=== PATIENT | female | born 1950 | race Caucasian/White ===

== ENCOUNTER → 2017-03-24 | Outpatient (REF) | payer OTHER | LOC: M LAB REF 16:22 | PROVIDERS: ATTEND Nurse Practitioner Adult Health | DX: R07.89 Other chest pain (principal) ==

== ENCOUNTER → 2018-02-16 | Outpatient (CLI) | payer MEDICARE, OTHER | LOC: M RAD 08:18 | DX: I15.0 Renovascular hypertension (principal); N18.4 Chronic kidney disease, stage 4 (severe) | CPT/HCPCS: 76775 ==

== ENCOUNTER → 2018-02-24 | Outpatient (CLI) | payer MEDICARE | LOC: M WHC 14:03 | DX: R92.8 Other abnormal and inconclusive findings on diagnostic imaging of breast (principal) | CPT/HCPCS: 77067 ==

== ENCOUNTER → 2018-03-03 | Outpatient (CLI) | payer MEDICARE | LOC: M RAD 13:36 | DX: N63.11 Unspecified lump in the right breast, upper outer quadrant (principal); N60.31 Fibrosclerosis of right breast | CPT/HCPCS: 77065 ==

== ENCOUNTER → 2018-03-12 | Outpatient (CLI) | payer MEDICARE ==
[~2018-03-12] MED LIST: LIDOCAINE 1% MDV 20ML VIAL As Ordered
== END ==
LOC: M RADPRO 11:54
DX: N63.21 Unspecified lump in the left breast, upper outer quadrant (principal); Z53.8 Procedure and treatment not carried out for other reasons

== ENCOUNTER → 2018-03-18 | Outpatient (CLI) | payer MEDICARE | LOC: M RADPRO 12:12 | DX: C50.911 Malignant neoplasm of unspecified site of right female breast (principal); Z79.82 Long term (current) use of aspirin; Z79.4 Long term (current) use of insulin; Z79.899 Other long term (current) drug therapy; Z88.5 Allergy status to narcotic agent | CPT/HCPCS: 19083 ==

== ENCOUNTER → 2018-05-21 | Outpatient (CLI) | payer MEDICARE ==
[~2018-05-21] MED LIST changes: +ANAS1TAB2 PO; +ASPI81CH32 PO; +BIOT1TAB PO; +FENO145T13 PO; +FLON1SPR NARES; +HUMA75VL SC; +HYDR12.55 PO; -LIDOCAINE 1% MDV 20ML VIAL As Ordered; +LISI-538 PO; +NAPR250T4 PO; +NITR4TASL SL; +PLAV1TAB2 PO; +PROBCAP14 PO; +SITA50TAB PO; +TOPR100T13 PO; +TRAM50TA2 PO; +ZOCO40TA PO
--- NOTE | 2018-05-24 09:18 | RADONC ---
RADIATION ONCOLOGY CONSULTATION NOTE DATE: 05/21/2018 CHART NUMBER: [id number] DIAGNOSIS: Right breast cancer. STAGE: I A, T1c, N0, M0, grade 1, ER positive, OR positive, HER2/satish negative. ECOG PERFORMANCE STATUS: Zero. CONSULTATION NOTE: Ms. 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 HISTORY OF PRESENT ILLNESS: The patient was in her usual state of health until routine mammogram was undertaken and revealed a suspicious area in the upper outer quadrant of the right breast. On 04/21/2018, the patient underwent lumpectomy and sentinel lymph node biopsy. Pathology revealed a 1.3 cm well-differentiated infiltrating ductal carcinoma. All margins of resection were negative with the closest margin being 1.5 mm. A total of three sentinel lymph nodes were sampled and all were negative for malignancy. The tumor was estrogen receptor and progesterone receptor positive and HER2/satish negative. The patient was seen by medical oncology and deemed not to be a candidate for systemic chemotherapy. She is now presenting to us for discussion of external beam radiation therapy. PAST MEDICAL HISTORY: The patient's past medical history is positive for an SC in 2001. She has hypertension, diabetes and arthritis. She has had two hernias in the past and has had a cardiac stent placed. ALLERGIES: The patient has NO KNOWN DRUG ALLERGIES. She reports nausea with pain medications. SOCIAL HISTORY: The patient does not smoke cigarettes nor abuse alcohol. FAMILY HISTORY: The patient's family history is negative for breast cancer or other malignancies. REVIEW OF SYSTEMS: The patient's review of systems is noncontributory. Denies nausea, vomiting, fevers, chills, night sweats, diplopia, headaches, anxiety or depression, anorexia, weight loss, visual disturbances, chest pain, urinary or bowel difficulties, bone pain, or neurological problems. PHYSICAL EXAMINATION: The patient is a well-developed, well-nourished, 67-year-old white female, in no acute distress. HEENT exam is normocephalic, atraumatic. Extraocular movements are intact. There is no palpable cervical, supraclavicular, infraclavicular, axillary, or inguinal lymphadenopathy present. Lungs are clear to auscultation and percussion. Heart has a regular rate and rhythm. Abdomen is benign with no hepatosplenomegaly, masses, or tenderness. Breast examination reveals no masses or discharge bilaterally. Skeletal examination reveals no tenderness to pressure or percussion of the bony skeleton. Extremities reveal no clubbing, cyanosis, or edema. Neurologic exam is grossly intact, as is the remainder of the physical examination. ASSESSMENT: Clearly the patient is a candidate for external beam radiation therapy and I have so informed her. I have discussed with the patient in detail the potential benefits as well as possible acute and chronic sequelae of external beam radiation therapy. We discussed logistics of treatment planning, simulation and subsequent fractionated daily radiation treatments. I have scheduled the patient for the next available simulation slot and radiation treatments will begin subsequently. Thank you for allowing us to participate in the care of this very pleasant woman. If I could be of any further assistance or provide you with any information, please feel free to contact me anytime. As always, warm regards. cc: Mayelin Rodriguez MD
== END ==
LOC: M ONCR 08:58
PROVIDERS: ATTEND Radiology Radiation Oncology
DX: C50.919 Malignant neoplasm of unspecified site of unspecified female breast (principal)

== ENCOUNTER → 2018-05-25 | Outpatient (CLI) | payer MEDICARE ==
--- NOTE | 2018-05-28 09:36 | DEXA ---
AP SPINE L1 - L4 1.406 1.7 3.4 LT FEMUR TOTAL 1.063 0.4 1.9 LT NECK 0.955 -0.6 1.1 RT FEMUR TOTAL 1.005 0.0 1.4 RT NECK 0.908 -0.9 0.7 TOTAL BODY TOTAL OTHER COMMENTS: Normal bone densitometry of the spine and hips. FOLLOW-UP: Recommendation for the next bone density exam: 5 years. SAPPHIRE
== END ==
LOC: M WHC 12:52
PROVIDERS: ATTEND Internal Medicine Hematology & Oncology
DX: M81.0 Age-related osteoporosis without current pathological fracture (principal)

== ENCOUNTER 2018-06-10 10:17 | Outpatient (RCR) | payer MEDICARE ==
[2018-06-01 11:23] LABS: HEMATOCRIT 36.5 % (36.0-47.0); LYMPH % 32.1 % (24.0-44.0); MEAN CORPUSCULAR HEMOGLOBIN 30.9 pg (27.0-33.0); MEAN CORPUSCULAR HGB CONC 32.9 g/dl (32.0-36.5); NEUTROPHILS # 3.1 10^3/uL (1.8-7.7); NEUTROPHILS % 58.8 % (36.0-66.0); RED BLOOD COUNT 3.88 10^6/uL (4.00-5.40); WHITE BLOOD COUNT 5.3 10^3/uL (4.0-10.0)
--- NOTE | 2018-06-02 10:56 | RADONC ---
RADIATION ONCOLOGY SIMULATION NOTE DATE: 06/01/2018 CHART NUMBER: [id number] Ms. Roldan was taken to the CT scan for CT simulation of her right breast field. CT was accomplished without difficulty or discomfort. Radiation treatment planning is underway and radiation treatments will begin subsequently. An immobilization device was created and will be used throughout the course of treatment. It was created without difficulty or discomfort. I was physically present throughout the course of CT simulation.
--- NOTE | 2018-06-08 13:37 | RADONC ---
RADIATION ONCOLOGY PROGRESS NOTE DATE: 06/08/2018 CHART NUMBER: [id number] Ms. Roldan underwent her first fraction of radiation today to her right breast for a dose of 266.67 cGy. It was tolerated without difficulty or discomfort. The patient's review of systems is noncontributory. She denies nausea, vomiting, fevers, chills, night sweats, diplopia, headaches, anxiety or depression, anorexia, weight loss, visual disturbances, chest pain, urinary or bowel difficulties, bone pain, or neurological problems. PHYSICAL EXAMINATION: Clearly the patient's skin shows no evidence of radiation change present since this was her first fraction of treatment. The remainder of physical exam remains unchanged as well. Ms. Roldan tolerated her treatment quite well and radiation will continue as scheduled.
== END 2018-06-11 ==
LOC: M ONCR 10:17
PROVIDERS: ATTEND Radiology Radiation Oncology
DX: C50.411 Malignant neoplasm of upper-outer quadrant of right female breast (principal)

== ENCOUNTER 2018-07-01 10:20 | Outpatient (RCR) | payer MEDICARE ==
--- NOTE | 2018-06-16 09:56 | RADONC ---
RADIATION ONCOLOGY PROGRESS NOTE DATE: 06/15/2018 CHART NUMBER: [id number] Ms. Roldan is presently at a dose of 1067 cGy to her right breast and is tolerating treatments quite well at this point with no complaints related to her radiation therapy. She is having no breast or bone pain. REVIEW OF SYSTEMS: The patient's review of systems is noncontributory. She denies nausea, vomiting, fevers, chills, night sweats, diplopia, headaches, anxiety or depression, anorexia, weight loss, visual disturbances, chest pain, urinary or bowel difficulties, bone pain, or neurological problems. PHYSICAL EXAMINATION: The patient's skin is in good condition with no evidence of moist or dry desquamation. The remainder of her physical exam remains unchanged. Ms. Roldan is tolerating treatments quite well and radiation will continue as scheduled.
--- NOTE | 2018-06-24 10:29 | RADONC ---
RADIATION ONCOLOGY PROGRESS NOTE DATE: 06/22/2018 CHART NUMBER: [id number] Paulette Roldan, with a diagnosis of right breast cancer stage IA, [id number], is currently receiving local regional radiotherapy via a breast conservation radiotherapy technique and her current dose is 266.7 cGy of an anticipated 4000 cGy. She has no specific complaints related to her disease or to her treatment, specifically denying any nausea, vomiting, coughing, sputum production or hemoptysis. She also denies any skin irritation. Her energy level is such that she is able to maintain most day-to-day activities, although she experiences a minimal amount of fatigue. The remainder of the review of systems is noncontributory. PHYSICAL EXAMINATION: Unchanged with no new physical findings, specifically the skin within the irradiated volume shows no significant erythema and certainly no focal desquamation. IMPRESSION: Tolerating therapy well. PLAN: Treatments to continue. MTDD
--- NOTE | 2018-06-30 20:23 | RADONC ---
RADIATION ONCOLOGY PROGRESS NOTE DATE OF SERVICE: 06/29/2018 CHART NUMBER: [id number]. PROGRESS NOTE: Mrs. Roldan with a right breast carcinoma is currently undergoing radiotherapy, and she seems to be tolerating her therapy quite well. She denies any nausea, vomiting, coughing, sputum production, or hemoptysis. She said this morning she had just a minimal amount of skin irritation in the inframammary fold, but it is not clinically apparent. The remainder of the review of systems is essentially negative, for she denies any issues with lung, heart, energy level, nausea, vomiting, anxiety, focal neurologic issues, or bone pain. EXAMINATION FINDINGS: The skin within the irradiated volume shows perhaps only a minimal amount of erythema in the inframammary fold with no focal desquamation, and the remainder of the physical examination is essentially negative. IMPRESSION: Tolerating therapy well. PLAN: Treatments to continue. MTDD
--- NOTE | 2018-07-02 11:47 | RADONC ---
RADIATION ONCOLOGY TREATMENT SUMMARY DATE: 07/01/2018 CHART NUMBER: [id number] DIAGNOSIS: Right breast cancer. STAGE: IA, A4nS6C1, ER/[place] positive, HER2/satish negative, grade 1. ECOG PERFORMANCE STATUS: 0 SUMMARY: PLAN OF RADIOTHERAPY: Adjuvant external beam radiotherapy. Date radiotherapy started 06/08, date radiotherapy completed 07/01. DOSE: The patient received a total of 4000.5 cGy administered in 15 fractions over 23 elapsed days. Prior to treatment delivery localization was accomplished upon our CT simulator and treatment portals defined by the use of multiple collimators. 3D conformal radiotherapy was employed as the technique of choice with tangential beams. A 6 and 15 mV photon beam were selected for treatment delivery. STATUS OF TUMOR: There was neither evidence of local regional recurrence nor clinical evidence of distant metastatic disease during the course of radiotherapy tolerance. In general, the patient tolerated her radiotherapy reasonably well, denying any significant nausea, vomiting, coughing, sputum production or hemoptysis. Her skin actually held up fairly nicely as she had may be minimal amount of erythema or a small amount of tanning, but actually no desquamation and no significant erythema. DISPOSITION: Return to clinic in 1 month for post radiotherapy followup visit and she was instructed to return to her referring physicians as per their directions and instructions. cc: MD Jany Carrion MD Jason White, MD
== END 2018-07-09 ==
LOC: M ONCR 10:20
PROVIDERS: ATTEND Radiology Radiation Oncology
DX: C50.411 Malignant neoplasm of upper-outer quadrant of right female breast (principal)

== ENCOUNTER → 2018-07-29 | Outpatient (CLI) | payer MEDICARE ==
--- NOTE | 2018-07-30 10:11 | RADONC ---
RADIATION ONCOLOGY FOLLOW-UP NOTE DATE: 07/29/2018 CHART NUMBER: [id number] DIAGNOSIS: Right breast cancer. STAGE: IA, [id number]. ECOG PERFORMANCE STATUS: 0 FOLLOW-UP NOTE: Ms. Roldan is a very pleasant 67-year-old white female with the diagnosis of a stage IA, [id number], well-differentiated infiltrating ductal carcinoma of the right breast who is presenting to us today for routine followup visit 1 month post completion of external beam radiation therapy. The patient presents today reporting that she is doing quite well with no complaints at this time related to her radiation therapy or disease. She has no breast or bone pain. REVIEW OF SYSTEMS: The patient's review of systems is noncontributory. She denies nausea, vomiting, fevers, chills, night sweats, diplopia, headaches, anxiety or depression, anorexia, weight loss, visual disturbances, chest pain, urinary or bowel difficulties, bone pain, or neurological problems. PHYSICAL EXAMINATION: The patient is a well-developed, well-nourished white female in no acute distress. HEENT exam is normocephalic, atraumatic. Extraocular movements are intact. There is no palpable cervical, supraclavicular, infraclavicular, axillary, or inguinal lymphadenopathy present. Lungs are clear to auscultation and percussion. Heart has a regular rate and rhythm. Abdomen is benign with no hepatosplenomegaly, masses, or tenderness. Breast examination reveals no masses or discharge bilaterally. Skeletal examination reveals no tenderness to pressure or percussion of the bony skeleton. Extremities reveal no clubbing, cyanosis, or edema. Neurologic exam is grossly intact, as is the remainder of the physical examination. ASSESSMENT: The patient is clinically YAKELIN at this time. She is being seen by her medical oncologist, Dr. Jany Garber and her surgeon Dr. Mayelin Rodriguez on a routine basis and is therefore being discharged from our followup except on a p.r.n. basis. cc: MD Jany Carrion MD Jason White, MD
== END ==
LOC: M ONCR 15:02
PROVIDERS: ATTEND Radiology Radiation Oncology
DX: C50.411 Malignant neoplasm of upper-outer quadrant of right female breast (principal)

== ENCOUNTER → 2019-01-25 | Outpatient (REF) | payer MEDICARE ==
[~2019-01-25] MED LIST changes: -ASPI81CH32 PO; +ASPI81CH33 PO; +TOPR100T PO; -TOPR100T13 PO
[2019-01-27 08:18] LABS: LDL DIRECT 155 mg/dL (0-99)
== END ==
LOC: M LAB REF 19:45
PROVIDERS: ATTEND Nurse Practitioner Adult Health
DX: E78.00 Pure hypercholesterolemia, unspecified (principal)

== ENCOUNTER → 2019-07-19 | Outpatient (REF) | payer MEDICARE ==
[~2019-07-19] MED LIST changes: -FENO145T13 PO; +FENO145T7 PO
[2019-07-21 08:06] LABS: LDL DIRECT 146 mg/dL (0-99)
== END ==
LOC: M LAB REF 16:24
PROVIDERS: ATTEND Nurse Practitioner Adult Health
DX: E78.00 Pure hypercholesterolemia, unspecified (principal)

== ENCOUNTER → 2020-02-09 | Outpatient (CLI) | payer MEDICARE ==
[~2020-02-09] MED LIST changes: +ROSU40TA4 PO
== END ==
LOC: M LABSMTC 11:39
PROVIDERS: ATTEND Anesthesiology
DX: Z01.812 Encounter for preprocedural laboratory examination (principal); Z20.828 Contact with and (suspected) exposure to other viral communicable diseases
CPT/HCPCS: C9803; U0003

== ENCOUNTER 2020-02-14 13:00 | Day surgery (SDC) | payer MEDICARE ==
[~2020-02-14] VITALS: Ht 157.5 cm; Wt 65.3 kg
[~2020-02-14 13:00] MED LIST changes: +NS 1,000 ML IV ONE
[2020-02-14] MEDS ORDERED: propofoL 200 MG/20 ML VIAL As Ordered ONE ×2 (15:18→15:28)
--- NOTE | 2020-02-14 15:50 | ROOR ---
Patient Name: Paulette Roldan Procedure Date: 02/14/2020 3:14 PM Date of : 1950 Age: 69 Room: [facility] Gender: Female Note Status: Finalized Procedure: Total Colonoscopy to Cecum + Cold Snare Polypectomy Indications: Screening for colorectal malignant neoplasm Providers: Ced Harvey MD Referring MD: Suzy Navarrete NP Requesting Provider: Medicines: Monitored Anesthesia Care Complications: No immediate complications. Procedure: Pre-Anesthesia Assessment: - The heart rate, respiratory rate, oxygen saturations, blood pressure, adequacy of pulmonary ventilation, and response to care were monitored throughout the procedure. The Colonoscope was introduced through the anus and advanced to the cecum, identified by appendiceal orifice and ileocecal valve. The Colonoscope was introduced through the and advanced to. The colonoscopy was performed without difficulty. The patient tolerated the procedure well. The quality of the bowel preparation was good. Findings: The perianal and digital rectal examinations were normal. Non-bleeding internal hemorrhoids were found during retroflexion. The hemorrhoids were small and Grade I (internal hemorrhoids that do not prolapse). Multiple small and large-mouthed diverticula were found in the recto-sigmoid colon, sigmoid colon and descending colon. A small polyp was found at 50 cm proximal to the anus. The polyp was sessile. The polyp was removed with a cold snare. Resection and retrieval were complete. The exam was otherwise without abnormality on direct and retroflexion views. Impression: - Non-bleeding internal hemorrhoids. - Diverticulosis in the recto-sigmoid colon, in the sigmoid colon and in the descending colon. - One small polyp at 50 cm proximal to the anus, removed with a cold snare. Resected and retrieved. - The examination was otherwise normal on direct and retroflexion views. - The exam was otherwise normal to the cecum. Recommendation: - Patient has a contact number available for emergencies. The signs and symptoms of potential delayed complications were discussed with the patient. Return to normal activities tomorrow. Written discharge instructions were provided to the patient. - High fiber diet. - Discharge patient to home. - Continue present medications. - Await pathology results. - Telephone GI clinic for pathology results in 1 week. - Repeat colonoscopy is not recommended due to current age (66 years or older) for screening purposes. - Return to referring physician. - The findings and recommendations were discussed with the patient. Ced Harvey MD Ced Harvey MD 02/14/2020 3:50:25 PM Electronically signed by Ced Harvey MD Number of Addenda: 0 Note Initiated On: 02/14/2020 3:14 PM Estimated Blood Loss: Estimated blood loss: none.
[2020-02-14 16:10] VITALS: BP 144/84
== END 2020-02-14 16:25 | disposition home or self-care (01) ==
LOC: M OPP 13:00
PROVIDERS: ATTEND Internal Medicine Gastroenterology
DX: Z12.11 Encounter for screening for malignant neoplasm of colon (principal); D12.6 Benign neoplasm of colon, unspecified; K64.0 First degree hemorrhoids; K57.30 Diverticulosis of large intestine without perforation or abscess without bleeding; E10.9 Type 1 diabetes mellitus without complications; R12 Heartburn; Z85.3 Personal history of malignant neoplasm of breast; Z85.828 Personal history of other malignant neoplasm of skin; Z92.3 Personal history of irradiation; Z95.5 Presence of coronary angioplasty implant and graft; Z86.73 Personal history of transient ischemic attack (TIA), and cerebral infarction without residual deficits; Z88.5 Allergy status to narcotic agent; Z79.82 Long term (current) use of aspirin; Z79.4 Long term (current) use of insulin; Z79.899 Other long term (current) drug therapy

== ENCOUNTER → 2020-05-18 | Outpatient (CLI) | payer MEDICARE ==
[~2020-05-18] MED LIST changes: -NS 1,000 ML IV ONE
--- NOTE | 2020-05-18 11:05 | DEXAMM ---
INDICATION: BREAST CA/ON ARIMATASE INHIBITORS. COMPARISON: Comparison study May 25, 2018.. TECHNIQUE: Bone density was measured using dual-energy x-ray absorptionmetry (DEXA). FINDINGS: AP SPINE L1-L4 BMD 1.405 g/cm2 Young Adult T-Score 1.7 Age Matched Z-Score 3.4. LT FEMUR, TOTAL BMD 0.993 g/cm2 Young Adult T-Score -0.1 Age Matched Z-Score 1.4. LT NECK BMD 0.928 g/cm2 Young Adult T-Score -0.8 Age Matched Z-Score 1.0. RT FEMUR, TOTAL BMD 1.016 g/cm2 Young Adult T-Score 0.1 Age Matched Z-Score 1.6. RT NECK BMD 0.924 g/cm2 Young Adult T-Score -0.8 Age Matched Z-Score 0.9. IMPRESSION: There is normal bone density of the spine. There is normal bone density of the left hip. There is normal bone density of the right hip. The density of the spine has decreased 0.1% since the initial exam on May 25, 2018. The density of the left hip has decreased 6.6% since initial exam on May 25, 2018. The density of the right hip has increased 1.1% since the initial exam on May 25, 2018. FOLLOW-UP: Recommendation for the next bone density exam: 5 years. <Electronically signed by Garcia Flores > 05/18/20 1100
== END ==
LOC: M WHC 09:40
PROVIDERS: ATTEND Internal Medicine Hematology & Oncology
DX: C50.919 Malignant neoplasm of unspecified site of unspecified female breast (principal); Z79.811 Long term (current) use of aromatase inhibitors; M85.89 Other specified disorders of bone density and structure, multiple sites

== ENCOUNTER → 2021-01-30 | Outpatient (REF) | payer MEDICARE ==
[~2021-01-30] MED LIST changes: -LISI-538 PO; +LISI20TA33 PO; +NAPR-849 PO; -NAPR250T4 PO
== END ==
LOC: M LAB REF 17:11
PROVIDERS: ATTEND Nurse Practitioner Family
DX: E83.42 Hypomagnesemia (principal)

== ENCOUNTER → 2021-06-04 | Outpatient (REF) | payer MEDICARE ==
[2021-06-04 17:46] LABS: MALB URINE SIEMENS 25.3 MG/L; MAU/CREAT RATIO 18.7 MCG/MG (0.0-30.0)
== END ==
LOC: M LAB REF 16:10
PROVIDERS: ATTEND Nurse Practitioner Adult Health
DX: E11.65 Type 2 diabetes mellitus with hyperglycemia (principal)

== ENCOUNTER 2021-08-03 10:14 | Emergency (ER) | payer MEDICARE ==
[~2021-08-03] VITALS: Ht 154.9 cm; Wt 64.5 kg
[2021-08-03] MEDS ORDERED: BOOSTRIX/ADACEL VACCINE (DIPHTH/PERTUSS/ACELL/TETANUS) 0.5ML SYR IM ONE (11:35)
[2021-08-03] MEDS ORDERED: ACETAMINOPHEN TAB 650MG DOSE (2X325MG) PO ONE (11:35)
[2021-08-03 12:15] VITALS: BP 143/88
== END 2021-08-03 12:24 | disposition home or self-care (01) ==
LOC: M ED 10:14
DX: S50.812A Abrasion of left forearm, initial encounter (principal); S50.12XA Contusion of left forearm, initial encounter; W19.XXXA Unspecified fall, initial encounter; Y92.099 Unspecified place in other non-institutional residence as the place of occurrence of the external cause; Y93.89 Activity, other specified; Y99.9 Unspecified external cause status; I25.2 Old myocardial infarction; E11.9 Type 2 diabetes mellitus without complications; K21.9 Gastro-esophageal reflux disease without esophagitis; N18.9 Chronic kidney disease, unspecified; Z80.3 Family history of malignant neoplasm of breast; Z79.02 Long term (current) use of antithrombotics/antiplatelets; Z79.82 Long term (current) use of aspirin; Z79.4 Long term (current) use of insulin; Z79.899 Other long term (current) drug therapy

== ENCOUNTER → 2021-10-22 | Outpatient (CLI) | payer MEDICARE | LOC: M SOG 14:30 | PROVIDERS: ATTEND Orthopaedic Surgery | DX: M25.552 Pain in left hip (principal) ==

== ENCOUNTER → 2021-12-11 | Outpatient (CLI) | payer MEDICARE | LOC: M WUC 14:13 | PROVIDERS: ATTEND Nurse Practitioner Adult Health | DX: M54.32 Sciatica, left side (principal); M43.17 Spondylolisthesis, lumbosacral region; M47.817 Spondylosis without myelopathy or radiculopathy, lumbosacral region ==

== ENCOUNTER → 2023-03-06 | Outpatient (CLI) | payer MEDICARE ==
[~2023-03-06] MED LIST changes: +CLOP75TA99 PO; -PLAV1TAB2 PO; +SIMV-254 PO; -ZOCO40TA PO
== END ==
LOC: M SOG 15:15
PROVIDERS: ATTEND Orthopaedic Surgery Hand Surgery
DX: M79.642 Pain in left hand (principal); M79.641 Pain in right hand; M19.041 Primary osteoarthritis, right hand; M19.042 Primary osteoarthritis, left hand; M85.841 Other specified disorders of bone density and structure, right hand; M85.842 Other specified disorders of bone density and structure, left hand

== ENCOUNTER → 2023-06-05 | Outpatient (REF) | payer MEDICARE | LOC: M LAB REF 16:11 | PROVIDERS: ATTEND Nurse Practitioner Family | DX: R31.9 Hematuria, unspecified (principal) ==

== ENCOUNTER → 2023-10-14 | Outpatient (CLI) | payer MEDICARE ==
[~2023-10-14] MED LIST changes: -ROSU40TA4 PO; +ROSU40TA63 PO
== END ==
LOC: M RAD 10:36
PROVIDERS: ATTEND Nurse Practitioner Family
DX: R31.9 Hematuria, unspecified (principal); R10.9 Unspecified abdominal pain; K44.9 Diaphragmatic hernia without obstruction or gangrene; K57.90 Diverticulosis of intestine, part unspecified, without perforation or abscess without bleeding; K40.20 Bilateral inguinal hernia, without obstruction or gangrene, not specified as recurrent; I70.0 Atherosclerosis of aorta; M16.0 Bilateral primary osteoarthritis of hip; M47.9 Spondylosis, unspecified

== ENCOUNTER → 2024-04-29 | Outpatient (REF) | payer MEDICARE ==
[~2024-04-29] MED LIST changes: -ROSU40TA63 PO; +ROSU40TA81 PO
== END ==
LOC: M LAB REF 16:07
PROVIDERS: ATTEND Nurse Practitioner Adult Health
DX: N39.0 Urinary tract infection, site not specified (principal)

== ENCOUNTER → 2024-09-23 | Outpatient (REF) | payer MEDICARE ==
[2024-09-23 18:04] LABS: TOTAL PROTEIN,RANDOM URINE 139.3 MG/DL (0.0-14.0)
== END ==
LOC: M LAB REF 17:09
PROVIDERS: ATTEND Nurse Practitioner Family
DX: N18.32 Chronic kidney disease, stage 3b (principal)